=== PATIENT | female | born 1995 | race Caucasian/White ===

== ENCOUNTER 2022-10-11 11:34 | Outpatient (CLI) | payer OTHER | END 2022-10-11 11:35 | disposition home or self-care (01) | LOC: CSHRAD 11:34 | PROVIDERS: ATTEND Family Medicine | DX: M54.50 Low back pain, unspecified (principal) | CPT/HCPCS: 72100 ==

== ENCOUNTER 2024-07-11 08:54 | Emergency (ER) | payer OTHER ==
[2024-07-11 10:09] LABS: Bilirubin Neg (Negative); Blood, Urine 10 (Negative); Clarity Clear (Clear); Glucose, Urine (Dipstick) Normal (Negative); Ketone, Urine 5 mg/dL (Negative); Leukocyte 25 (Negative); Nitrite Negative (Negative); Protein, Urine (Dipstick) 30 mg/dl (Neg-Trace); Urobilinogen Normal mg/dL (Less than 2)
[2024-07-11 10:13] LABS: Pregnancy Test - Urine (BHCG) Negative (Negative); Pregu Control Background? CLEAR/WHITE (CLR/WHITE); Pregu Control Bar Appear? YES (CONTROL BAR)
[2024-07-11 10:32] LABS: Bacteria/HPF 1+ HPF (None Seen); CAUTI Indications for Culture Pelvic or flank pain; Mucous/LPF 1+ LPF (<2+); RBC/HPF 0-3 HPF (0-3); WBC/HPF 0-3 HPF (0-3)
[2024-07-11 10:33] LABS: Urine Culture Reflex No No
[2024-07-11] MEDS ORDERED: Cyclobenzaprine 10 MG TAB ONE (10:53)
[2024-07-11] MEDS ORDERED: Morphine 4 MG/ML VIAL ONE (10:53)
[2024-07-11] MEDS ORDERED: HYDROcodone/Acetaminophen 5/325 mg Tablet ONE (12:10)
[2024-07-11] MEDS ORDERED: Ketorolac Tromethamine 30 MG (1 mL) VIAL ONE (12:17)
== END 2024-07-11 13:20 | disposition home or self-care (01) ==
LOC: CSHERS 08:54
DX: M62.830 Muscle spasm of back (principal); M54.6 Pain in thoracic spine; M79.7 Fibromyalgia
CPT/HCPCS: 81001; 81025; 96372; 99284; J1885; J2270

== ENCOUNTER 2025-02-13 07:58 | Emergency (ER) | payer OTHER | END 2025-02-13 09:15 | disposition home or self-care (01) | LOC: CSHERS 07:58 | DX: S93.492A Sprain of other ligament of left ankle, initial encounter (principal); F90.9 Attention-deficit hyperactivity disorder, unspecified type; X50.1XXA Overexertion from prolonged static or awkward postures, initial encounter | CPT/HCPCS: 99283 ==